=== PATIENT | female | born 1970 | race Caucasian/White ===

== ENCOUNTER → 2017-05-25 | Outpatient (CLI) | payer BC ==
[~2017-05-25] MED LIST: IOPAMIDOL-370 75 ML VIAL IV ONE
== END | disposition home or self-care (01) ==
LOC: RAH 08:13
PROVIDERS: ATTEND Internal Medicine Gastroenterology
DX: M25.552 Pain in left hip (principal); R10.32 Left lower quadrant pain; Z97.5 Presence of (intrauterine) contraceptive device
CPT/HCPCS: 73502; 74177; Q9967